=== PATIENT | female | born 1985 | race African-American/Black ===

== ENCOUNTER 2019-06-01 18:29 | Emergency (ER) | payer SELFPAY | END 2019-06-01 19:30 | disposition home or self-care (01) | LOC: ERS 18:29 | DX: J11.1 Influenza due to unidentified influenza virus with other respiratory manifestations (principal); H92.01 Otalgia, right ear; I10 Essential (primary) hypertension; F17.210 Nicotine dependence, cigarettes, uncomplicated; Z79.899 Other long term (current) drug therapy | CPT/HCPCS: 99283 ==